=== PATIENT | female | born 1990 | race Caucasian/White ===

== ENCOUNTER 2017-10-16 20:49 | Emergency (ER) | payer BC, OTHER ==
[2017-10-16] MEDS ORDERED: Ondansetron ODT 4 MG TAB ONE ×3 (21:08→21:39)
[2017-10-16 21:17] LABS: Hemoglobin 13.5 g/dL (12.0-16.0); Mean Corpuscular HGB CONC 35.3 g/dL (32.0-36.0); Mean Corpuscular Hemoglobin 31.3 pg (27.0-31.0); Mean Corpuscular Volume 88.5 fl (81.0-99.0); Mean Platelet Volume 7.6 fL (7.4-10.4); Platelet Count 330 thou/uL (130-400); RBC Distribution Width 12.3 % (11.5-14.5); Red Blood Cell (RBC) Count 4.31 mill/uL (4.20-5.40); White Blood Cell (WBC) Count 16.2 thou/uL (4.8-10.8)
[2017-10-16] MEDS ORDERED: Morphine 4 MG/ML VIAL ONE ×2 (21:26→21:51)
[2017-10-16 21:35] LABS: Band 4 % (5-11); Lymphocytes 19 % (21-51); MDiff Complete? YES; Monocytes 8 % (0-10); Neutrophil 69 % (42-75)
[2017-10-16 21:36] LABS: ALT (SGPT) 33 U/L (8-55); AST (SGOT) 30 U/L (5-34); Albumin 4.5 g/dL (3.5-5.0); Alkaline Phosphatase 164 U/L (40-150); Anion Gap 16 mmol/L (10-20); BUN (Urea Nitrogen) 8 mg/dL (7.0-18.7); Bilirubin, Total 0.5 mg/dL (0.2-1.2); Calc. Creatinine Clearance 0 mL/min (70-130); Calcium 9.8 mg/dL (7.8-10.44); Carbon Dioxide 23 mmol/L (22-29); Chloride 104 mmol/L (98-107); Estimated GFR-MDRD 45; Globulin 3.5 g/dL (2.4-3.5); Glucose 105 mg/dL (70-105); Lipase 16 U/L (8-78); Potassium 3.7 mmol/L (3.5-5.1); Sodium 139 mmol/L (136-145)
[2017-10-16 21:51] LABS: Bilirubin Small (Negative); Blood, Urine Moderate (Negative); Glucose, Urine (Dipstick) Negative (Negative); Leukocyte Negative (Negative); Nitrite Negative (Negative); Protein, Urine (Dipstick) 30 mg/dL (Neg-Trace); Specific Gravity, Urine 1.025 (1.005-1.030); Urobilinogen 0.2 mg/dL (0.2-1.0); pH, Urine 6.5 (5.0-9.0)
[2017-10-16 21:52] LABS: Bacteria/HPF None Seen HPF (None Seen); Pathc Cast-AUWi Flag 4.21 (0-2.49)
[2017-10-16 21:53] LABS: Clarity Hazy (Clear); Pregnancy Test - Urine (BHCG) Negative (Negative); Pregu Control Background? CLEAR/WHITE (CLR/WHITE); Pregu Control Bar Appear? YES (CONTROL BAR); Specific Gravity 1.025 (1.002-1.036)
[2017-10-16 21:58] LABS: Crystals/HPF None Seen HPF (Negative); Hyaline Casts/LPF 0-3 HYALINE CAST LPF (0-3 Hyaline); Yeast-All Forms None Seen HPF (None Seen)
--- NOTE | 2017-10-16 22:12 | CT ---
CT OF THE ABDOMEN AND PELVIS WITHOUT CONTRAST 10/16/17 INDICATION: Right lower quadrant abdominal pain. FINDINGS: there is a 2.6 cm distal right ureteral calculus causing mild right hydronephrosis. Unopacified liver , spleen, pancreas, adrenal gland and kidneys appear within normal limits otherwise. There is some de bris seen within the distal esophagus that may reflect reflux or dysmotility. Normal appendix is seen in the right lower quadrant. There is a 4.5 cm cyst within the right adnexa. No acute osseous abnormality is evident. IMPRESSION: 1. 2.6 mm distal right ureteral calculus with mild right hydronephrosis. 2. Right adnexal cyst. 3. Some slight debris seen within the distal esophagus may reflect reflux versus dysmotility. POS: [facility]
[2017-10-16] MEDS ORDERED: Ketorolac Tromethamine 30 MG/ML VIAL ONE (22:50)
== END 2017-10-16 23:48 | disposition home or self-care (01) ==
LOC: ERS 20:49
DX: N13.2 Hydronephrosis with renal and ureteral calculous obstruction (principal)
CPT/HCPCS: 74176; 80053; 81003; 81015; 81025; 83690; 85025; 96361; 96374; 96375; J1885; J2270; Q0162